=== PATIENT | male | born 1950 | race Caucasian/White ===

== ENCOUNTER → 2020-07-15 12:42 | Outpatient (CLI) | payer MEDICARE, SELFPAY ==
[2020-07-15 10:54] VITALS: BMI 43.1
== END ==
PROVIDERS: Referring Provider Physician Assistant Surgical; Visit Provider Physician Assistant Surgical
DX: Z20.828 Contact with and (suspected) exposure to other viral communicable diseases (principal)
CPT/HCPCS: 87635; U0003